=== PATIENT | male | born 1965 | race Caucasian/White ===

== ENCOUNTER 2018-09-06 08:41 | Emergency (ER) | payer BC ==
--- NOTE | 2018-09-06 09:10 | ERPHSYRPT ---
- History of Present Illness Time Seen by Provider: 09/06/18 08:55 Historian: patient Exam Limitations: no limitations Patient Subjective Stated Complaint: Pain in LLQ for approx 1 week, pain with palpatations, denies issues with bowels except that it feels like he needs to go after going Triage Nursing Assessment: Pt walked into the ER with a stable gait, rates pain 8/10 in LLQ, constant pain for 1 week, pain with palpatation, denies flank pain , denies radiation of pain, bowel sounds heard in all 4 quadrants Physician History: 52 y/o white male presents with left lower quadrant abd pain. present for one week. no prior episodes. only abd surgery is an umbilical hernia. normal colonoscopy 3 years ago. normal bm and urine output. no n/v/d. denies cp. Timing/Duration: week(s) (1) Activities at Onset: none Quality: aching, fullness, pressure Abdominal Pain Onset Location: LLQ Pain Radiation: no radiation Severity of Pain-Max: mild Severity of Pain-Current: mild Modifying Factors: Improves With: nothing. Worsens With: defecating, urinating , vomiting Associated Symptoms: denies symptoms Previous symptoms: no prior history Allergies/Adverse Reactions: No Known Drug Allergies Allergy (Verified 09/06/18 08:55) - Review of Systems Constitutional: No Symptoms Eyes: No Symptoms Ears, Nose, & Throat: No Symptoms Respiratory: No Symptoms Cardiac: No Symptoms Abdominal/Gastrointestinal: Abdominal Pain (llq), No Nausea, No Vomiting, No Diarrhea, No Constipation Genitourinary Symptoms: No Symptoms Musculoskeletal: No Symptoms Skin: No Symptoms Neurological: No Symptoms Psychological: No Symptoms Endocrine: No Symptoms Hematologic/Lymphatic: No Symptoms Immunological/Allergic: No Symptoms All Other Systems: Reviewed and Negative - Past Medical History Pertinent Past Medical History: Yes Neurological History: No Pertinent History ENT History: No Pertinent History Cardiac History: No Pertinent History Respiratory History: No Pertinent History Endocrine Medical History: No Pertinent History Musculoskeletal History: Other GI Medical History: Hernia History: No Pertinent History Psycho-Social History: No Pertinent History Male Reproductive Disorders: No Pertinent History Other Medical History: blew 5 discs out of back - Past Surgical History Past Surgical History: Yes Neuro Surgical History: No Pertinent History Cardiac: No Pertinent History Respiratory: No Pertinent History Gastrointestinal: Hernia Repair Genitourinary: No Pertinent History Musculoskeletal: Orthopedic Surgery Male Surgical History: No Pertinent History Other Surgical History: herniated disc, left foot - Social History Smoking Status: Never smoker Exposure to second hand smoke: Yes Drug Use: none Patient Lives Alone: No - Nursing Vital Signs Nursing Vital Signs: Initial Vital Signs Pulse Rate 83 09/06/18 09:56 Blood Pressure 143/95 09/06/18 09:56 O2 Sat by Pulse Oximetry 96 09/06/18 09:56 Pain Scale Pain Intensity 8 - Physical Exam General Appearance: no apparent distress, alert, anxiety Eye Exam: PERRL/EOMI Ears, Nose, Throat Exam: normal ENT inspection, moist mucous membranes Neck Exam: normal inspection, non-tender, supple, full range of motion Respiratory Exam: normal breath sounds, lungs clear, airway intact, No chest tenderness, No respiratory distress Cardiovascular Exam: regular rate/rhythm, normal heart sounds, normal peripheral pulses Gastrointestinal/Abdomen Exam: soft, normal bowel sounds, tenderness (llq), No guarding, No rebound Rectal Exam: not done Back Exam: normal inspection, normal range of motion, No CVA tenderness, No vertebral tenderness Extremity Exam: normal inspection, normal range of motion, pelvis stable Neurologic Exam: alert, oriented x 3, cooperative, 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, normal mood/affect, nml cerebellar function, nml station & gait Skin Exam: normal color, warm, dry Lymphatic Exam: adenopathy SpO2 Interpretation: normal O2 Delivery: Room Air - Course Nursing assessment & vital signs reviewed: Yes Ordered Tests: Active Orders 24 hr Category Date Time Status IV Insertion STAT Care 09/06/18 09:10 Active ABDOMEN AND PELVIS W/0 CONTRAS [CT] Stat Exams 09/06/18 09:11 Completed AMYLASE Stat Lab 09/06/18 09:00 Completed CBC W DIFF Stat Lab 09/06/18 09:00 Completed CMP Stat Lab 09/06/18 09:00 Completed LIPASE Stat Lab 09/06/18 09:00 Completed Lactic Acid Stat Lab 09/06/18 09:10 Completed UA W/RFX UR CULTURE Stat Lab 09/06/18 09:30 Completed Lab/Rad Data: Laboratory Result Diagrams 09/06/18 09:00 09/06/18 09:00 Laboratory Results 09/06/18 09/06/18 09/06/18 Range/Units 09:30 09:10 09:00 WBC (4.0-10.5) K/mm3 RBC (4.1-5.6) M/mm3 Hgb (12.5-18.0) gm/dl Hct (42-50) % MCV (78-100) fl MCH (26-32) pg MCHC (32-36) g/dl RDW (11.5-14.0) % Plt Count (150-450) K/mm3 MPV (6-9.5) fl Gran % (36.0-66.0) % Eos # (Auto) (0-0.5) Absolute Lymphs (auto) (1.0-4.6) Absolute Monos (auto) (0.0-1.3) Lymphocytes % (24.0-44.0) % Monocytes % (0.0-12.0) % Eosinophils % (0.00-5.0) % Basophils % (0.0-0.4) % Absolute Granulocytes (1.4-6.9) Basophils # (0-0.4) Sodium 140 (137-145) mmol/L Potassium 4.1 (3.5-5.1) mmol/L Chloride 100 (98-107) mmol/L Carbon Dioxide 26 (22-30) mmol/L Anion Gap 17.5 H (5-15) MEQ/L BUN 17 (9-20) mg/dL Creatinine 0.99 (0.66-1.25) mg/dL Estimated GFR > 60.0 ML/MIN Glucose 140 H (74-106) mg/dL Lactic Acid 1.6 (0.4-2.0) Calcium 9.7 (8.4-10.2) mg/dL Total Bilirubin 0.70 (0.2-1.3) mg/dL AST 37 (17-59) U/L ALT 51 H (0-50) U/L Alkaline Phosphatase 100 (38-126) U/L Serum Total Protein 8.3 H (6.3-8.2) g/dL Albumin 4.7 (3.5-5.0) g/dL Amylase 90 (30-110) U/L Lipase 115 (23-300) U/L Urine Color YELLOW (YELLOW) Urine Appearance CLEAR (CLEAR) Urine pH 6.0 (5-6) Ur Specific Addy 1.018 (1.005-1.025) Urine Protein NEGATIVE (Negative) Urine Ketones NEGATIVE (NEGATIVE) Urine Blood NEGATIVE (0-5) Johann/ul Urine Nitrite NEGATIVE (NEGATIVE) Urine Bilirubin NEGATIVE (NEGATIVE) Urine Urobilinogen NEGATIVE (0-1) mg/dL Ur Leukocyte Esterase NEGATIVE (NEGATIVE) Urine WBC (Auto) NONE (0-5) /HPF Urine RBC (Auto) NONE (0-2) /HPF U Epithel Cells (Auto) NONE (FEW) /HPF Urine Bacteria (Auto) NONE (NEGATIVE) /HPF Urine Culture Reflexed NO (NO) Urine Glucose NEGATIVE (NEGATIVE) mg/dL 09/06/18 Range/Units 09:00 WBC 11.0 H (4.0-10.5) K/mm3 RBC 5.47 (4.1-5.6) M/mm3 Hgb 17.3 (12.5-18.0) gm/dl Hct 50.3 H (42-50) % MCV 92.0 (78-100) fl MCH 31.6 (26-32) pg MCHC 34.4 (32-36) g/dl RDW 12.9 (11.5-14.0) % Plt Count 212 (150-450) K/mm3 MPV 10.2 H (6-9.5) fl Gran % 72.0 H (36.0-66.0) % Eos # (Auto) 0.26 (0-0.5) Absolute Lymphs (auto) 1.72 (1.0-4.6) Absolute Monos (auto) 1.03 (0.0-1.3) Lymphocytes % 15.7 L (24.0-44.0) % Monocytes % 9.4 (0.0-12.0) % Eosinophils % 2.4 (0.00-5.0) % Basophils % 0.5 (0.0-0.4) % Absolute Granulocytes 7.93 H (1.4-6.9) Basophils # 0.05 (0-0.4) Sodium (137-145) mmol/L Potassium (3.5-5.1) mmol/L Chloride (98-107) mmol/L Carbon Dioxide (22-30) mmol/L Anion Gap (5-15) MEQ/L BUN (9-20) mg/dL Creatinine (0.66-1.25) mg/dL Estimated GFR ML/MIN Glucose (74-106) mg/dL Lactic Acid (0.4-2.0) Calcium (8.4-10.2) mg/dL Total Bilirubin (0.2-1.3) mg/dL AST (17-59) U/L ALT (0-50) U/L Alkaline Phosphatase (38-126) U/L Serum Total Protein (6.3-8.2) g/dL Albumin (3.5-5.0) g/dL Amylase (30-110) U/L Lipase (23-300) U/L Urine Color (YELLOW) Urine Appearance (CLEAR) Urine pH (5-6) Ur Specific Addy (1.005-1.025) Urine Protein (Negative) Urine Ketones (NEGATIVE) Urine Blood (0-5) Johann/ul Urine Nitrite (NEGATIVE) Urine Bilirubin (NEGATIVE) Urine Urobilinogen (0-1) mg/dL Ur Leukocyte Esterase (NEGATIVE) Urine WBC (Auto) (0-5) /HPF Urine RBC (Auto) (0-2) /HPF U Epithel Cells (Auto) (FEW) /HPF Urine Bacteria (Auto) (NEGATIVE) /HPF Urine Culture Reflexed (NO) Urine Glucose (NEGATIVE) mg/dL - Progress Progress: pain not gone completely, re-examined Progress Note: 09/06/18 10:12 pt does not want any narcotic pain medication at this time. ct scan abd/pelvis- mild diverticulitis distal desc colon and prox sigmoid colon. Counseled pt/family regarding: lab results, diagnosis, need for follow-up, rad results - Departure Departure Disposition: Home Clinical Impression: Diverticulitis large intestine Condition: Stable Critical Care Time: No Referrals: CHRIS HARO [Primary Care Provider] - Additional Instructions: clear liquids next 12 to 24 hours. take medications as prescribed. follow up with primary doctor for further management Prescriptions: Hydrocodone/APAP 5-325 Tab^^^ [G[place]ham 5-325 Tablet^^^] 1 tab PO Q6HPRN PRN #10 tablet MDD 6 PRN Reason: Pain Ciprofloxacin [Cipro 500 MG] 500 mg PO BID #14 tablet Metronidazole 500 mg [Flagyl 500 MG] 500 mg PO TID #21 tablet
[2018-09-06 09:25] LABS: BASOPHIL % 0.5 % (0.0-0.4); Basophil (Absolute #) 0.05 (0-0.4); Eosinophil % 2.4 % (0.00-5.0); Eosinophil (Absolute #) 0.26 (0-0.5); Granulocyte Absolute (ANC) 7.93 (1.4-6.9); Hematocrit 50.3 % (42-50); Hemoglobin 17.3 gm/dl (12.5-18.0); Lymphocyte (Absolute #) 1.72 (1.0-4.6); Lymphocytes % 15.7 % (24.0-44.0); Mean Corpuscular Hemoglobin 31.6 pg (26-32); Mean Corpuscular Hgb Concent. 34.4 g/dl (32-36); Mean Platelet Volume 10.2 fl (6-9.5); Monocyte (Absolute #) 1.03 (0.0-1.3); Monocytes % 9.4 % (0.0-12.0); Platelet Count 212 K/mm3 (150-450); Red Blood Count 5.47 M/mm3 (4.1-5.6); Red Cell Distribution Width 12.9 % (11.5-14.0)
[2018-09-06 09:32] LABS: ALBUMIN 4.7 g/dL (3.5-5.0); ALKALINE PHOSPHATASE 100 U/L (38-126); AMYLASE 90 U/L (30-110); ANION GAP 17.5 MEQ/L (5-15); BLOOD UREA NITROGEN 17 mg/dL (9-20); CHLORIDE 100 mmol/L (98-107); Calcium 9.7 mg/dL (8.4-10.2); Carbon Dioxide 26 mmol/L (22-30); Creatinine 1 0.99 mg/dL (0.66-1.25); Glucose 140 mg/dL (74-106); LIPASE 115 U/L (23-300); Potassium 4.1 mmol/L (3.5-5.1); SGOT/AST 37 U/L (17-59); SGPT/ALT 51 U/L (0-50); SODIUM 140 mmol/L (137-145); Total Protein 8.3 g/dL (6.3-8.2)
[2018-09-06 09:40] LABS: Appearance CLEAR (CLEAR); Bilirubin NEGATIVE (NEGATIVE); Blood NEGATIVE Ery/ul (0-5); Glucose NEGATIVE (NEGATIVE); Ketones NEGATIVE (NEGATIVE); Leukocyte Esterase NEGATIVE (NEGATIVE); Nitrite NEGATIVE (NEGATIVE); Protein,Urine Dip NEGATIVE (Negative); Specific Gravity 1.018 (1.005-1.025); Urobilinogen NEGATIVE mg/dL (0-1)
--- NOTE | 2018-09-06 09:44 | XRAY ---
Indication: Left lower quadrant pain 1 week. Multiple contiguous axial images obtained through the abdomen and pelvis without contrast as ordered. Comparison: None Lung bases demonstrates bibasilar fibrosis/scarring. No infiltrate or effusion. Heart is not enlarged. Noncontrasted stomach and bowel loops appear nonobstructed. Normal appendix. Diffuse scattered colonic diverticulosis. Distal descending and proximal sigmoid colon demonstrates mild pericolonic stranding favoring diverticulitis. No free fluid/air. 4 mm gallstone and tiny calcified splenic granuloma. Remaining liver, gallbladder, pancreas, spleen, adrenal glands, kidneys, ureters, and bladder appear unremarkable for noncontrast exam. Minimal aortic calcifications without AAA. Osseous structures intact with mild degenerative changes throughout the lumbar spine. Small fatty left inguinal hernia. Impression: 1. Diffuse colonic diverticulosis. Mild diverticulitis involving the distal descending and proximal sigmoid colon. No complications. 2. Tiny gallstone and small fatty left inguinal hernia. 3. Remaining CT abdomen/pelvis without contrast exam is negative. CT DI 22.80
[2018-09-06] MEDS ORDERED: Flagyl 500 MG ONE (10:17)
[2018-09-06] MEDS ORDERED: Cipro 500 MG ONE (10:17)
[2018-09-06] MEDS: Flagyl 500 MG PO ONE (10:18)
[2018-09-06] MEDS: Cipro 500 MG PO ONE (10:18)
[2018-09-06 10:47] VITALS: BP 124/84; PULSE 82; O2SAT 94
== END 2018-09-06 10:47 | disposition home or self-care (01) ==
LOC: ED 08:41
DX: K57.32 Diverticulitis of large intestine without perforation or abscess without bleeding (principal)
CPT/HCPCS: 36000; 36415; 74176; 80053; 81001; 82150; 83605; 83690; 85025; 99284; A9270-GY

== ENCOUNTER 2019-01-27 09:58 | Day surgery (SDC) | payer BC ==
[2019-01-27] MEDS ORDERED: Lactated Ringers 1,000 ML IV SCH (10:30)
[2019-01-27] MEDS ORDERED: DIPRIVAN 200 MG/20 ML IV ONE ×3 (12:43→13:29)
[2019-01-27] MEDS ORDERED: Lactated Ringers 1,000 ML IV ONE (13:06)
[2019-01-27 15:25] VITALS: O2SAT 99
[2019-01-27 15:31] VITALS: BP 142/84; PULSE 64
--- NOTE | 2019-01-28 08:19 | OP ---
PROCEDURE DATE/TIME: 01/27/2019 1243 PREOPERATIVE DIAGNOSES: 1) Reflux disease. 2) Diverticulitis. POSTOPERATIVE DIAGNOSES: 1) Gastric polyps. 2) Mild gastritis. 3) Grade II gastroesophageal reflux disease. 4) Small hiatal hernia. 5) Severe pancolonic diverticulosis. 6) Colon polyp. PROCEDURES: 1) EGD with hot snare gastric polypectomy x2 and cold forceps biopsies. 2) Colonoscopy with hot snare polypectomy. PROCEDURE PERFORMED BY: Marcy Gilmore M.D. ANESTHESIA: MAC. ESTIMATED BLOOD LOSS: Minimal. COMPLICATIONS: None. SPECIMENS: 1) Sigmoid colon polyp at 44 cm. 2) Gastric polyp including cardia and gastric body polyp. 3) Distal esophageal biopsies. 4) Antral biopsy. HISTORY: This is a 53 year-old gentleman who presents with reflux disease and also has had two episodes of diverticulitis this year and so he presents for EGD and colonoscopy. Risks, benefits, alternatives to the procedure, H&P reviewed preoperatively. DESCRIPTION OF PROCEDURE: He was then brought back to the endoscopy suite. Laid in the left lateral decubitus position. A complete time out performed. The scope gently introduced into the mouth, oropharynx and down to the esophagus, stomach and duodenum. The duodenum was normal. In the stomach there was some trace gastritis and he also had multiple gastric polyps. These all appeared to be benign and they looked like fundic gland polyp. There were two that were slightly larger size than the rest. These were about medium size about 8 mm in diameter and each of these were taken out with hot snare and sent to pathology. One from the body and one up higher in the cardia. We also took an antral biopsy to rule out Helicobacter pylori. All sites were hemostatic after biopsy. I did not see any other masses or lesions or concern. There were no ulcers. There was no old blood in the stomach. On retroflex view we do visualize a subtle hiatal hernia. As we withdrew our scope we revisualized this and this is about 1 cm sliding-type hiatal hernia. He also had grade II gastroesophageal reflux disease with some mild distal esophagitis here. I took some biopsies here as well with cold forceps. Sites were hemostatic. A targeted approach and then we carefully withdrew the scope. The remainder of the esophagus was normal. The patient tolerated the procedure well. We then repositioned him for colonoscopy. First, a rectal exam was done. The scope was then inserted and gently advanced all the way to the cecum. Quite a bit of liquid stool and a significant amount of bubbles throughout the colon in the cecum. We copiously irrigated. We did use simethicone as well to get rid of the bubbles as best we could. We then able to visualize the ileocecal valve and the appendiceal orifice which were normal. We then continued our copious irrigation throughout the colon. I did not find any masses or issues of concern throughout the colon. He did however have quite significant diverticulosis throughout the colon. Ascending colon with mild disease. Transverse had more moderate diverticular disease and then the descending and sigmoid colon had very severe diverticulosis with many pockets large and small. He also had slightly chronically edematous and thicker colonic tissue from about 30 to 40 cm but thickest from 20 to 30 cm. This appears to be the most affected segment at about 20 to 30 cm and then 30 to 40 cm is minimally affected chronically but still quite a high number of pockets. At approximately 44 cm, there was one sigmoid colon polyp this was semi-pedunculated. It was slightly broader base at approximately 8 mm to 10 mm in size and I encircled this entirely with hot snare and removed this in entirety, retrieved and this to pathology. The scope is then able to be completely removed. The patient tolerated the procedure very well. There were no immediate complications. PLAN: 1) Discuss gallstone disease and determine surgical plan for this. I would recommend a laparoscopic possible open cholecystectomy. 2) Await the pathology of the colon polyp and determine final plan for diverticular disease. At this time I have recommended dietary changes. 3) The patient will tentatively need a colonoscopy reminder in three years due to finding of a polyp. 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 5) The patient is going to be set up for CT chest with IV contrast due to an abnormality of the right upper lobe identified on chest x-ray which was incidental.
== END 2019-01-27 15:20 | disposition home or self-care (01) ==
LOC: SDC 09:58
PROVIDERS: ATTEND Surgery
DX: K21.9 Gastro-esophageal reflux disease without esophagitis (principal); K57.32 Diverticulitis of large intestine without perforation or abscess without bleeding; K29.70 Gastritis, unspecified, without bleeding; D12.5 Benign neoplasm of sigmoid colon; K44.9 Diaphragmatic hernia without obstruction or gangrene; K63.5 Polyp of colon; K31.7 Polyp of stomach and duodenum
CPT/HCPCS: 88305; J2704

== ENCOUNTER 2023-03-17 11:56 | Emergency (ER) | payer BC ==
--- NOTE | 2023-03-17 12:05 | ERPHSYRPT ---
- History of Present Illness Time Seen by Provider: 03/17/23 12:05 Source: patient, family Exam Limitations: no limitations Physician History: This is a left handed 57-year-old white male patient who presents with left shoulder pain that was relatively acute in onset 2 days ago when he was [place] the [place]. Patient was climbing on a very large tire when his left arm slipped causing the shoulder to pull. Patient has had a history of a small left shoulder rotator cuff in the past and never had it operated on. Patient cannot use his left shoulder without significant pain on movement. Patient does have Percocet at home but he has not taken any of that medication. He has been using Aleve but is insufficient to relieve his left shoulder pain. Patient has a history of gastroesophageal reflux disease and hyperlipidemia. Occurred: days ago (2) Method of Injury: other Quality: constant, aching Severity of Pain-Max: moderate Severity of Pain-Current: moderate Extremities Pain Location: shoulder: left Modifying Factors: Improves With: movement (Worsens) Associated Symptoms: none Allergies/Adverse Reactions: dexamethasone Allergy (Severe, Verified 03/17/23 12:08) Home Medications: Albuterol Sulfate [Albuterol Sulfate Hfa] 7 gm IH DAILY 01/17/19 [History] Atorvastatin Calcium 10 mg PO DAILY 01/17/19 [History] Cyclobenzaprine HCl [Flexeril] 10 mg PO HS 01/17/19 [History] Doxepin HCl 25 mg PO HS 01/17/19 [History] Fluticasone Propionate [Flonase NASAL] 16 gm NS DAILY 01/17/19 [History] Lactobacillus Combo No.10 [Probiotic] 1 each PO DAILY 01/17/19 [History] PANTOPRAZOLE 40 mg Tablet [Protonix 40MG Tablet] 40 mg PO QAM 01/17/19 [History] Cetirizine HCl [Zyrtec] 10 mg PO DAILY 01/27/19 [History] Travel Risk - International Travel Have you traveled outside of the country in past 3 weeks: No - Coronavirus Screening Are you exhibiting any of the following symptoms?: No Close contact with a COVID-19 positive Pt in past 14-21 Days: No - Review of Systems Constitutional: No Symptoms Eyes: No Symptoms Ears, Nose, & Throat: No Symptoms Respiratory: No Symptoms Cardiac: No Symptoms Abdominal/Gastrointestinal: No Symptoms Genitourinary Symptoms: No Symptoms Musculoskeletal: Injury (Left shoulder) Neurological: No Symptoms Psychological: No Symptoms Endocrine: No Symptoms Hematologic/Lymphatic: No Symptoms Immunological/Allergic: No Symptoms All Other Systems: Reviewed and Negative - Past Medical History Pertinent Past Medical History: Yes Neurological History: No Pertinent History ENT History: No Pertinent History Cardiac History: No Pertinent History Respiratory History: Other Endocrine Medical History: No Pertinent History Musculoskeletal History: Other GI Medical History: Diverticulitis, Diverticulosis, Hernia History: No Pertinent History Psycho-Social History: No Pertinent History Male Reproductive Disorders: No Pertinent History Other Medical History: blew 5 discs out of back, 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, 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 inhailer for dt sob/pnuemonia - Past Surgical History Past Surgical History: Yes Neuro Surgical History: No Pertinent History Cardiac: No Pertinent History Respiratory: No Pertinent History Gastrointestinal: Hernia Repair Genitourinary: No Pertinent History Musculoskeletal: Orthopedic Surgery Male Surgical History: No Pertinent History Other Surgical History: herniated disc, left foot, colonoscopy and egd - Social History Smoking Status: Never smoker Exposure to second hand smoke: Yes Drug Use: none Patient Lives Alone: No - Nursing Vital Signs Nursing Vital Signs: Initial Vital Signs Temperature 97.9 F 03/17/23 12:10 Pulse Rate 75 03/17/23 12:10 Respiratory Rate 18 03/17/23 12:10 Blood Pressure 129/93 03/17/23 12:10 O2 Sat by Pulse Oximetry 97 03/17/23 12:10 Pain Scale Pain Intensity 10 - Physical Exam General Appearance: no apparent distress, alert, anxiety Eyes, Ears, Nose, Throat Exam: normal ENT inspection, moist mucous membranes Neck Exam: normal inspection, non-tender, supple, full range of motion Cardiovascular/Respiratory Exam: chest non-tender, no respiratory distress Abdominal Exam: non-tender Back Exam: normal inspection, normal range of motion, No CVA tenderness, No vertebral tenderness Shoulder Exam: limited ROM, soft tissue tenderness (Patient holds the left shoulder/upper extremity flexed at the elbow against his abdomen and chest to minimize movement and pain) Elbow/Forearm Exam: normal inspection, non-tender, no evidence of injury, normal ROM Wrist Exam: normal inspection, non-tender, no evidence of injury, normal ROM Hand Exam: normal inspection, non-tender, no evidence of injury, normal ROM Neuro/Tendon Exam: normal sensation, normal motor functions, normal tendon functions Mental Status Exam: alert, oriented x 3, cooperative Skin Exam: normal color, warm, dry SpO2 Interpretation: normal O2 Delivery: Room Air - Course Nursing assessment & vital signs reviewed: Yes Ordered Tests: Active Orders 24 hr Category Date Time Status Sling Application STAT Care 03/17/23 12:50 Active SHOULDER Stat Exams 03/17/23 12:26 Taken Medication Summary Discontinued Medications Generic Name Dose Route Start Last Admin Trade Name Sandra PRN Reason Stop Dose Admin Hydromorphone HCl 1 mg 03/17/23 12:33 Hydromorphone 1 Mg/1ml Inj IM 03/17/23 12:34 STAT ONE Hydromorphone HCl Confirm 03/17/23 12:51 Hydromorphone 1 Mg/1ml Inj Administered 03/17/23 12:52 Dose 1 mg .ROUTE .STK-MED ONE Ketorolac Tromethamine 60 mg 03/17/23 12:33 Ketorolac Tromethamine 30 Mg/Ml Inj IM 03/17/23 12:34 STAT ONE Ketorolac Tromethamine Confirm 03/17/23 12:50 Ketorolac Tromethamine 30 Mg/Ml Inj Administered 03/17/23 12:51 Dose 60 mg .ROUTE .STK-MED ONE Ondansetron HCl 4 mg 03/17/23 12:34 Zofran 4 Mg/Udtablet Orally Disintegrating PO 03/17/23 12:35 STAT ONE Ondansetron HCl Confirm 03/17/23 12:50 Zofran 4 Mg/Udtablet Orally Disintegrating Administered 03/17/23 12:51 Dose 4 mg .ROUTE .STK-MED ONE Orphenadrine Citrate 60 mg 03/17/23 12:34 Orphenadrine Citrate 60 Mg/2 Ml Vial IM 03/17/23 12:35 STAT ONE Orphenadrine Citrate Confirm 03/17/23 12:51 Orphenadrine Citrate 60 Mg/2 Ml Vial Administered 03/17/23 12:52 Dose 60 mg .ROUTE .STK-MED ONE - Progress Progress: improved, pain not gone completely, re-examined Progress Note: 03/17/23 12:42 This patient's medical issue is 1 of low complexity. Level complex in the workup performed is based on review the patient's past medical history, review of the patient's medication list, review patient drug allergy list, history of present illness and physical findings on examination. The workup in this pat ient includes x-ray of the left shoulder, providing the patient with intramuscular Dilaudid, Toradol intramuscularly, intramuscular orphenadrine and oral ODT Zofran. We will also place the patient in a sling The patient has Percocet at home and he will take that 3 times a day. In addition he will take Aleve twice a day. We will remotely send orphenadrine to his pharmacy. Patient will follow-up in his primary care provider's office by phone on 03/19/2023, for further evaluation management. The other option provided to the patient is to follow-up at the [facility] orth opedic clinic Sunday through Sunday 8 AM to 10 AM. He was told it was a walk-in clinic and he does not need to have an appointment. 03/17/23 12:57 I interpreted the x-ray of the patient's left shoulder. There is no evidence of any acute fracture or dislocation. Counseled pt/family regarding: diagnosis, need for follow-up, rad results Medical Desision Making - Independent Historian Additional History obtained from: Spouse - Diagnostic Testing Diagnostic test were ordered, analyzed, and reviewed by me: Yes Radiological Interpretation: Interpreted by me, Teleradiologist Report - Risk of complications The pt has a mod risk of morbidity or mortality based on: Need for prescription drug management - Departure Departure Disposition: Home Clinical Impression: Left shoulder strain Condition: Stable Critical Care Time: No Referrals: DAVE DEVINE [Primary Care Provider] - Follow up/PCP as directed Additional Instructions: Alternate ice and heat to the left shoulder area. Wear the sling for comfort. You have 2 options for follow-up. You may follow-up in the [facility] orthopedic clinic here Sunday through Sunday 8 AM to 10 AM. It is a walk-in clinic and you do not need an appointment. The other option is to follow-up with your primary care provider by phone, on 03/19/2023, to make a follow-up appointment for further evaluation management. Continue taking your Percocet 3 times a day. Continue Aleve/naproxen twice a day. Take your prescription medication as prescribed. Forms: Work/School Release Form Prescriptions: Orphenadrine Citrate 100 mg [Norflex 100 MG Tablet] 100 mg PO BID #10 tab
[2023-03-17 12:20] VITALS: TEMP 97.9
[2023-03-17] MEDS ORDERED: TORAdol 30 mg Injection IM ONE (12:33)
[2023-03-17] MEDS ORDERED: Hydromorphone 1 mg/ml Injection IM ONE (12:33)
[2023-03-17] MEDS ORDERED: Norflex 60 MG/2 ML IM ONE (12:34)
[2023-03-17] MEDS ORDERED: ZOFRAN ODT 4 MG PO ONE (12:34)
[2023-03-17] MEDS ORDERED: ZOFRAN ODT 4 MG ONE (12:50)
[2023-03-17] MEDS ORDERED: TORAdol 30 mg Injection ONE (12:50)
[2023-03-17] MEDS ORDERED: Norflex 60 MG/2 ML ONE (12:51)
[2023-03-17] MEDS ORDERED: Hydromorphone 1 mg/ml Injection ONE (12:51)
[2023-03-17 13:05] VITALS: BP 138/90; PULSE 72; RESP 16; O2SAT 98
--- NOTE | 2023-03-17 19:45 | XRAY ---
Indication: Chronic left shoulder pain. No known injury. Comparison: None 3 view left shoulder demonstrates mild AC degenerative changes and tiny left lung calcified granuloma. No other bony, articular, or soft tissue abnormalities.
== END 2023-03-17 13:10 | disposition home or self-care (01) ==
LOC: ED 11:56
DX: S46.912A Strain of unspecified muscle, fascia and tendon at shoulder and upper arm level, left arm, initial encounter (principal); X50.0XXA Overexertion from strenuous movement or load, initial encounter; Y93.39 Activity, other involving climbing, rappelling and jumping off; Y92.64 Mine or pit as the place of occurrence of the external cause; Y99.0 Civilian activity done for income or pay; E78.5 Hyperlipidemia, unspecified; Z79.891 Long term (current) use of opiate analgesic; Z79.899 Other long term (current) drug therapy
CPT/HCPCS: 73030; 96372; 99283; J1170; J1885; J2360; Q0162